=== PATIENT | male | born 1960 | race Caucasian/White ===

== ENCOUNTER 2023-08-13 05:42 | Day surgery (SDC) | payer OTHER, SELFPAY ==
[2023-06-13 14:36] VITALS: BMI 26.1
[2023-07-24 13:14] VITALS: BMI 25.9
--- NOTE | 2023-08-13 07:14 | P.PNAN_ITS ---
Anes - Initial Pre Proc Eval Procedure: Operation Date: 08/13/23 07:30 Proposed Procedures p Screening Colonoscopy - Ryan Gomez MD Date/Time: 08/13/23 07:14 Surgeon: Ryan Gomez MD Pre Op Diagnosis: Neoplasm Screening Patient Data Age: 62 Gender: M Height: 1.68 m Weight: 72.8 kg Allergies Allergy/AdvReac Type Severity Reaction Status Date / Time No Known Allergies Allergy Unknown Verified 08/13/23 06:10 Home Medications Medication Instructions Recorded Confirmed Type atorvastatin 40 mg tablet 40 mg PO DAILY #90 tabs 06/04/23 08/13/23 Rx sodium,potassium,mag sulfates 17.5 See Rx Instructions PO .COMPLEX 06/13/23 08/13/23 Rx gram-3.13 gram-1.6 gram oral soln #354 mL (Suprep Bowel Prep Kit) Patient hx anesthesia problems: none Family hx anesthesia problems: none Results Review: All pre-operative results and documents have been reviewed as part of the pre- operative evaluation. [facility] Surgical History Surgical History History of appendectomy (~1969) History of tonsillectomy (~1970) Family History Family History Father Diabetes mellitus Leukemia Social History Social History Smoking status: Current every day smoker Tobacco type: cigarettes and smokeless tobacco Smokeless tobacco user: chewing tobacco Additional smoking assessment comments: PT SMOKED CIGARETTES 1 PPD/25 YRS THEN CHANGED TO CHEWING TOBACCO X 20 YRS Alcohol intake: current Drinks per week: 2 Substance use: never Substance use type: does not use Living arrangements: with family Spiritual care concerns: No Anes - Eval Final PreProcedure Day of Procedure 08/13/23 07:14 Patient weight: normal Heart: regular rate and rhythm Lungs: clear to auscultation Airway: Mallampati scale class II Neurological: alert and oriented Last oral intake: >/= 8 hours ASA classification: II Emergent: no Anesthetic plan: proceed Anesthesia type and monitoring: general GIVS and standard monitoring Results Review: All pre-operative results and documents have been reviewed as part of the pre- operative evaluation. Informed Consent: The patient's anesthetic plan and its attendant risks and benefits were discussed with the patient/family/POA. Questions were solicited and answers provided to the satisfaction of the patient/family/POA.
--- NOTE | 2023-08-13 07:27 | P.HP_ITS ---
History of Present Illness History of Present Illness Consent: Risks, benefits, and alternatives have been discussed and questions answered. Patient agrees to proceed with procedure. Chief complaint: Neoplasm Screening Narrative: Surya Jasso Jr. is a 62 year old male Presents for screening colonoscopy. A. Patient's current weight appetite and bowel movements are normal. His abdominal pain. He has had no bleeding. Family history is noncontributory. This is patient's 1st colonoscopy. Review of Systems Review of Systems: Review of Systems is noncontributory. [facility] Surgical History Surgical History History of appendectomy (~1969) History of tonsillectomy (~1970) Family History Family History Father Diabetes mellitus Leukemia Social History Social History Smoking status: Current every day smoker Tobacco type: cigarettes and smokeless tobacco Smokeless tobacco user: chewing tobacco Additional smoking assessment comments: PT SMOKED CIGARETTES 1 PPD/25 YRS THEN CHANGED TO CHEWING TOBACCO X 20 YRS Alcohol intake: current Drinks per week: 2 Substance use: never Substance use type: does not use Living arrangements: with family Spiritual care concerns: No Meds Home Medications and Allergies Home Medications Medication Instructions Recorded Confirmed Type atorvastatin 40 mg tablet 40 mg PO DAILY #90 tabs 06/04/23 08/13/23 Rx sodium,potassium,mag sulfates 17.5 See Rx Instructions PO .COMPLEX 06/13/23 08/13/23 Rx gram-3.13 gram-1.6 gram oral soln #354 mL (Suprep Bowel Prep Kit) Allergies Allergy/AdvReac Type Severity Reaction Status Date / Time No Known Allergies Allergy Unknown Verified 08/13/23 06:10 Exam Narrative: Physical exam reveals patient vital signs stable. HEENT exam is unremarkable. Patient is anicteric. Lungs are clear to auscultation and percussion, heart is normal with no extra sounds. Abdomen bowel sounds are present soft nontender with no organomegaly. Assessment and Plan Assessment and plan (1) Encounter for screening colonoscopy: Code(s): Z12.11 - Encounter for screening for malignant neoplasm of colon Status: Acute Assessment and Plan: Presents today for screening colonoscopy . HE appears to be at average risk for colon polyps.
[2023-08-13 07:38] VITALS: BP 123/81; PULSE 57; RESP 16; TEMP 36.8; O2SAT 100
[2023-08-13] MEDS: LACTATED RINGERS 1,000 ML 150 ML IV CONT (07:39)
[2023-08-13 07:44] VITALS: BP 95/74; PULSE 60; RESP 16; O2SAT 98
[2023-08-13 07:54] VITALS: BP 118/80; PULSE 58; RESP 15; O2SAT 100
--- NOTE | 2023-08-13 08:07 | WPDANESPN ---
Anes - Prog Note Post-Op Date/Time: 08/13/23 08:07 Cardiovascular status: normal Respiratory status: normal Airway patency: baseline Mental status: baseline Post-Op hydration status: normal Vital Signs: Last Vital Signs Temp 36.8 C 08/13/23 07:38 Pulse 60 08/13/23 07:44 Resp 16 08/13/23 07:44 BP 95/74 L 08/13/23 07:44 Pulse Ox 98 08/13/23 07:44 O2 Del Method Room Air 08/13/23 07:44 Pain Score (VAS): 0 I/O: Intake & Output 08/12/23 08/13/23 08/13/23 23:59 07:59 15:59 Intake Total 300 Balance 300 Patient Feedback: Patient satisfied with anesthetic care.
[2023-08-13 08:22] VITALS: BP 116/78; PULSE 55; RESP 16; O2SAT 100
== END 2023-08-13 08:15 | disposition home or self-care (01) ==
PROVIDERS: PCP Family Medicine Adolescent Medicine; Visit Provider Internal Medicine Gastroenterology
PROC: 0DJD8ZZ Inspection of Lower Intestinal Tract, Via Natural or Artificial Opening Endoscopic (ICD-10-PCS; CPT 45378; principal; 2023-08-13 07:30)
DX: Z12.11 Encounter for screening for malignant neoplasm of colon (principal); K64.8 Other hemorrhoids
CPT/HCPCS: 45378